=== PATIENT | male | born 1975 | race Caucasian/White ===

== ENCOUNTER 2017-08-17 07:53 | Emergency (ER) | END 2017-08-17 11:29 | disposition home or self-care (01) ==

== ENCOUNTER 2019-03-28 21:57 | Emergency (ER) | payer MEDICAID ==
[~2019-03-28] VITALS: Ht 172.7 cm; Wt 79.7 kg
[~2019-03-28 21:57] MED LIST: ACET500C5 PO; AMOX1TAB10 PO; HYDR-4011 PO; IBUP-1542 PO; OMEP20CA16 PO; ONDA4TAB8 PO
[2019-03-28 22:02] VITALS: BP 137/85; PULSE 88; RESP 19; Ht 172.7 cm; Wt 79.7 kg
--- NOTE | 2019-03-28 22:53 | ERD ---
ER Documentation Chief Complaint Chief Complaint DENTAL PAIN; LEFT FACIAL SWELLING X1DAY HPI Patient is a 43-year-old male, no past medical history, presents the ER for concerns of dental pain and facial swelling x1 day. Patient states he has no pain to the left upper molars. Patient has not seen a dentist in over 10 years. Patient admits to poor dentition. Patient denies any fevers at home. Patient denies any drooling, trismus, hyper extension of his neck. Patient denies any chest pain, shortness of breath, nausea vomiting or abdominal pain. ROS All systems reviewed and are negative except as per history of present illness. Medications Home Meds Active Scripts Ibuprofen* (Motrin*) 600 Mg Tab, 600 MG PO Q6, #30 TAB Prov:ANTONY CHAPMAN PA-C 03/28/19 Amoxicillin/Potassium Clav (Amox-Clav 875-125 mg Tablet) 875-125 mg Tab, 1 TAB PO BID for 10 Days, #20 TAB Prov:ANTONY CHAPMAN PA-C 03/28/19 Ondansetron Hcl* (Zofran*) 4 Mg Tablet, 4 MG PO Q6H for NAUSEA AND/OR VOMITING, #30 TAB Prov:SAM SANON PA-C 08/17/17 Omeprazole* (Omeprazole*) 20 Mg Capsule.dr, 20 MG PO BID, #20 Prov:SAM SANON PA-C 08/17/17 Acetaminophen* (Tylophen*) 500 Mg Capsule, 1 CAP PO Q6H PRN for PAIN AND OR ELEVATED TEMP, #30 CAP Prov:SAM SANON PA-C 08/17/17 Hydrocodone/Acetaminophen ([place] 5-325 Tablet) 1 Each Tablet, 1 TAB PO Q6H PRN for PAIN, #12 TAB Prov:SAM SANON PA-C 08/17/17 Allergies Allergies: Coded Allergies: No Known Allergy (Unverified , 03/28/19) PMhx/Soc Medical and Surgical Hx: pt denies Medical Hx, pt denies Surgical Hx Hx Alcohol Use: No Hx Substance Use: No Hx Tobacco Use: No FmHx Family History: No diabetes Physical Exam Vitals Vital Signs Date Temp Pulse Resp B/P (MAP) Pulse Ox O2 O2 Flow FiO2 Time Delivery Rate 03/28/19 100.7 88 19 137/85 97 22:02 (102) Physical Exam GENERAL: Well-developed, well-nourished male. Appears in no acute distress. Speaking in full sentences. HEAD: Normocephalic, atraumatic. EYES: Pupils are equally reactive bilaterally. EOMs grossly intact. No conjunctival erythema. ENT: Moist mucous membranes. No uvula deviation. No kissing tonsils. Numerous dental caries noted to the left upper molars with significant poor dentition. L eft cheek is swollen and tender. Nonerythematous. No fluctuance or induration. NECK: Supple. No meningismus. Normal range of motion of the neck. LUNG: Clear to auscultation bilaterally. No rhonchi, wheezing, rales or coarse breath sounds. HEART: Regular rate and rhythm. No murmurs, rubs or gallops. EXTREMITIES: Equal pulses bilaterally. No peripheral clubbing, cyanosis or edema. No unilateral leg swelling. NEUROLOGIC: Alert and oriented. Moving all four extremities without any difficulty. Normal speech. Steady gait. SKIN: Normal color. Warm and dry. No rashes or lesions. Results 24 hrs Current Medications Medications Dose Sig/Caroline Start Time Status Last (Trade) Ordered Route PRN Stop Time Admin Dose Reason Admin Ceftriaxone 1 gm ONCE ONCE 03/28/19 03/28/19 Sodium IM 23:00 22:46 (Rocephin) 03/28/19 23:01 Lidocaine 20 ml ONCE ONCE 03/28/19 03/28/19 (Xylocaine SC 23:00 22:46 1% (Mdv) 20 03/28/19 23:01 ml) Ibuprofen 600 mg ONCE ONCE 03/28/19 03/28/19 (Motrin) PO 23:00 22:45 03/28/19 23:01 1 tab ONCE ONCE 03/28/19 03/28/19 Acetaminophen PO 23:00 22:45 / 03/28/19 23:01 Hydrocodone Bitart ([place] (5/325)) Procedures/MDM MEDICAL DECISION MAKING: This is a 43-year-old male who presents the ER for concerns of right upper dental pain and facial swelling x1 day. Vital signs were reviewed. Patient was febrile at initial presentation with temperature 100.7 F. Patient was given antibiotics here in the ER. Temperature noted to be downtrending prior to discharge.. Patient was not hypoxic. The patient did not have trismus, muffled voice, uvula deviation, unilateral tonsillar swelling, or drooling. No signs of neck swelling or hyperextension of the neck noted. On exam, patient had numerous dental caries and poor dentition. Numerous tooth erosions noted. Patient was advised he will need to follow-up with a dentist tomorrow morning. Referral information provided. Patient was given Rocephin IM injection. Patient tolerated well without any side effects. Patient will be discharged home with prescription for Augmentin. At this time from patient presentation is most consistent with dental caries. Low suspicion for epiglottitis, strep pharyngitis, peritonsillar abscess, retropharyngeal abscess, Ludwigs angina, tooth fracture, bleeding dental socket, periodontal abscess, ulcerative gingivitis. PRESCRIPTIONS: Augmentin, ibuprofen DISCHARGE: At this time, patient is stable for discharge and outpatient management. I have instructed the patient to see a dentist today or tomorrow. I have instructed the patient to promptly return to the ER at any time for any new or worsening symptoms including increased pain, fever, swelling, neck swelling, neck stiffness, drooling or difficulty breathing. The patient and/or family expressed understanding of and agreement with this plan. All questions were answered. Home care instructions were provided. Disclaimer: Inadvertent spelling and grammatical errors are likely due to EHR/dictation software use and do not reflect on the overall quality of patient care. Also, please note that the electronic time recorded on this note does not necessarily reflect the actual time of the patient encounter. Departure Diagnosis: Primary Impression: Dental caries Additional Impressions: Toothache Fever Fever type: unspecified Qualified Codes: R50.9 - Fever, unspecified Condition: Fair Patient Instructions: Dental Pain Referrals: COMMUNITY CLINICS YOU HAVE RECEIVED A MEDICAL SCREENING EXAM AND THE RESULTS INDICATE THAT YOU DO NOT HAVE A CONDITION THAT REQUIRES URGENT TREATMENT IN THE EMERGENCY DEPARTMENT. FURTHER EVALUATION AND TREATMENT OF YOUR CONDITION CAN WAIT UNTIL YOU ARE SEEN IN YOUR DOCTORS OFFICE WITHIN THE NEXT 1-2 DAYS. IT IS YOUR RESPONSIBILITY TO MAKE AN APPOINTMENT FOR FOLOW-UP CARE. IF YOU HAVE A PRIMARY DOCTOR --you should call your primary doctor and schedule an appointment IF YOU DO NOT HAVE A PRIMARY DOCTOR YOU CAN CALL OUR PHYSICIAN REFERRAL HOTLINE AT IF YOU CAN NOT AFFORD TO SEE A PHYSICIAN YOU CAN CHOSE FROM THE FOLLOWING [facility] [address] [place] [facility] [address] [place] [facility] [facility] [address] [facility] [address] [facility] [address] [facility]. [facility]. [address] [facility]. [facility] YOU HAVE RECEIVED A MEDICAL SCREENING EXAM AND THE RESULTS INDICATE THAT YOU DO NOT HAVE A CONDITION THAT REQUIRES URGENT TREATMENT IN THE EMERGENCY DEPARTMENT. FURTHER EVALUATION AND TREATMENT OF YOUR CONDITION CAN WAIT UNTIL YOU ARE SEEN IN YOUR DOCTORS OFFICE WITHIN THE NEXT 1-2 DAYS. IT IS YOUR RESPONSIBILITY TO MAKE AN APPOINTMENT FOR FOLOW-UP CARE. IF YOU HAVE A PRIMARY DOCTOR --you should call your primary doctor and schedule and appointment IF YOU DO NOT HAVE A PRIMARY DOCTOR YOU CAN CALL OUR PHYSICIAN REFERRAL HOTLINE AT . IF YOU CAN NOT AFFORD TO SEE A PHYSICIAN YOU CAN CHOSE FROM THE FOLLOWING [facility]: [facility] [address] [place] [address] [facility] [address] [place] [address] [facility] [address] [place] [address] [facility] ([facility] walk in clinic) Additional Instructions: Follow-up with a dentist tomorrow morning. See referral information. Call your primary care doctor TOMORROW for an appointment during the next 1-2 days.See the doctor sooner or return here if your condition worsens before your appointment time. ANTONY CHAPMAN PA-C Mar 28, 2019 22:53
[2019-03-28] MEDS ORDERED: CEFTRIAXONE 1 GM INJ IM ONE (23:00)
[2019-03-28] MEDS ORDERED: LIDOCAINE 1% (MDV) 20 ML INJ SC ONE (23:00)
[2019-03-28] MEDS ORDERED: IBUPROFEN 600 MG TAB PO ONE (23:00)
[2019-03-28] MEDS ORDERED: HYDROCODONE/APAP (5/325) TAB PO ONE (23:00)
== END 2019-03-28 23:15 | disposition home or self-care (01) ==
LOC: FTE 21:57
DX: K02.9 Dental caries, unspecified (principal); R50.9 Fever, unspecified
CPT/HCPCS: 96372; J0696; Z7502; Z7610